=== PATIENT | female | born 1995 | race Caucasian/White ===

== ENCOUNTER 2020-08-31 08:55 | Emergency (ER) | payer OTHER ==
[2020-08-31 09:56] LABS: HIV (1/2) Antibody/Antigen Non-Reactive (NonReactive); HIV 1/2 INDEX 0.15 S/CO (<1.00); Hep C IgG Ab Non-Reactive (NonReactive); Hep C Index 0.09 S/CO (0-0.79)
[2020-08-31 10:03] LABS: HBSAB Concentration 58.55 mIU/mL; Hep B Surf AB Reactive (NonReactive)
== END 2020-08-31 09:21 | disposition home or self-care (01) ==
LOC: ERS 08:55
DX: S61.232A Puncture wound without foreign body of right middle finger without damage to nail, initial encounter (principal); W46.0XXA Contact with hypodermic needle, initial encounter
CPT/HCPCS: 36415; 86706; 86803; 87389; 99282

== ENCOUNTER 2021-12-06 11:18 | Emergency (ER) | payer OTHER | END 2021-12-06 15:40 | disposition home or self-care (01) | LOC: ERS 11:18 | DX: H53.9 Unspecified visual disturbance (principal) | CPT/HCPCS: 99283 ==

== ENCOUNTER 2022-05-19 00:27 | Emergency (ER) | payer OTHER, SELFPAY | END 2022-05-19 02:28 | disposition home or self-care (01) | LOC: ERS 00:27 | DX: H43.392 Other vitreous opacities, left eye (principal); R42 Dizziness and giddiness; Z79.899 Other long term (current) drug therapy | CPT/HCPCS: 99283 ==